=== PATIENT | female | born 1955 | race Caucasian/White ===

== ENCOUNTER 2017-04-07 13:48 | Inpatient (IN) | payer MEDICARE ==
[~2017-04-07] VITALS: Ht 147.3 cm; Wt 31.0 kg
[2017-04-07 15:56] LABS: BASOPHILS 0.6 % (0-2); HEMATOCRIT 36.3 % (36.0-48.0); HEMOGLOBIN 12.2 g/dL (12-16); IMMATURE GRANULOCYTES 0.4 % (0-5); MCH 33.9 pg (26.0-34.0); MCHC 33.6 g/dL (31.0-37.0); MCV 100.8 fL (80.0-100.0); MEAN PLATELET VOLUME 9.5 fL (7.4-10.4); PLATELET COUNT 444 10x3/uL (130-400); RDW 11.7 % (11.5-14.5); WBC 7.8 10x3/uL (4.8-10.8)
[2017-04-07 16:09] LABS: ALBUMIN 3.8 g/dL (3.4-5.0); ALKALINE PHOSPHATASE 54 U/L (46-116); ALT (SGPT) 18 U/L (10-68); BILIRUBIN - TOTAL 0.23 mg/dL (0.2-1.3); CALC OSMOLALITY 256 mosm/kg (275-300); CALCIUM 8.9 mg/dL (8.5-10.1); CARBON DIOXIDE 31.4 mmol/L (21.0-32.0); CHLORIDE - SERUM 91 mmol/L (98-107); CREATININE - SERUM 0.4 mg/dL (0.6-1.3); GLUCOSE 109 mg/dL (74-106); PROTEIN - SERUM 7.4 g/dL (6.4-8.2); SODIUM 128 mmol/L (136-145); UREA NITROGEN 9 mg/dL (7-18); eGFR NON AFRICAN AMERICAN > 90 mL/min (90-120)
[2017-04-07 16:17] LABS: PRO BNP 127 pg/mL (0-125)
[2017-04-07 16:21] LABS: TROPONIN-I < 0.017 ng/mL (0.000-0.060)
[2017-04-07 16:45] LABS: APPEARANCE CLEAR (CLEAR); BILIRUBIN NEGATIVE (NEGATIVE); COLOR YELLOW (YELLOW); GLUCOSE NEGATIVE (NEGATIVE); KETONE NEGATIVE (NEGATIVE); LEUKOCYTE ESTERASE TRACE (NEGATIVE); NITRITE NEGATIVE (NEGATIVE); PROTEIN NEGATIVE (NEGATIVE); UROBILINOGEN NORMAL (NORMAL)
[2017-04-07 16:46] LABS: BACTERIA FEW /hpf (NONE SEEN); EPITHELIAL CELLS 0-5 /hpf (0-5); RED CELLS - URINE OCC /hpf (0-5); WHITE CELLS - URINE 0-5 /hpf (0-5)
--- NOTE | 2017-04-07 19:45 | NUR ---
RECEIVED PT TO ROOM 2125 ALERT O X3. RT IN ROOM, BIPAP IN ROOM NOT IN USE AT THIS TIME. PT REQUESTED AND GIVEN SANDWICH TRAY AND DRINK. WILL MONITOR.
[2017-04-07] MEDS ORDERED: HYDROCODONE-APA1 TAB PO (20:24)
[2017-04-07] MEDS ORDERED: QVAR8.7 G1 INH (20:25)
[2017-04-07] MEDS ORDERED: VALIUM5 MG PO (20:25)
[2017-04-07] MEDS ORDERED: IPRAT-ALBUT 0.5-3 ML UPD (20:26)
[2017-04-07] MEDS ORDERED: VENTOLIN HFA18 GM INH (20:26)
[2017-04-07 20:27] VITALS: BMI 14.6
[2017-04-07 21:46] VITALS: BP 102/60; BP 144/83
[2017-04-08 01:37] VITALS: BP 123/66
[2017-04-08 05:32] VITALS: BP 102/63
--- NOTE | 2017-04-08 07:14 | NUR ---
PT SITTING UP IN BED WATCHING TV, DENIES NEEDS. RR EVEN AND UNLABORED WILL CONT TO MONITOR
[2017-04-08 08:15] VITALS: BP 98/59
--- NOTE | 2017-04-08 10:58 | NUR ---
PT SITTING U PIN BED DENIES NEEDS WILL CONT TO MONITOR
[2017-04-08 12:04] VITALS: BP 129/78
[2017-04-08 13:09] VITALS: Ht 147.3 cm; Wt 31.0 kg
--- NOTE | 2017-04-08 14:40 | NUR ---
Patient Name: MARIA EUGENIA JAMES Admission Status: ER Accout number: [id number] Admission Date: 04-07-2017 : 1955 Admission Diagnosis: Attending: SIDNEY Current LOS: 1 Anticipated DC Date: Planned Disposition: Home Primary Insurance: MEDICARE A & B Discharge Planning Comments: * Is the patient Alert and Oriented? Yes 0 * How many steps to enter\exit or inside your home? 1-2 0 * PCP DR. ROSENBERG 0 * Pharmacy [facility] [address] 0 * Preadmission Environment Home Alone 0 * ADLs Independent 0 * Equipment Nebulizer Oxygen 0 * Other Equipment HOME AND PORTABLE OXYGEN [facility] - MEDICAL EQUIPMENT PROVIDER PREFERENCE 0 * List name and contact numbers for known caregivers / representatives who currently or will assist patient after discharge: EZRA HOWARD, SISTER, 0 * Community resources currently utilized None 0 * Please name any agencies selected above. NONE 0 * Additional services required to return to the preadmission environment? No 0 * Can the patient safely return to the preadmission environment? Yes 0 * Has this patient been hospitalized within the prior 30 days at any hospital? Yes 0 CM MET WITH PT IN ROOM TO DISCUSS DISCHARGE PLANNING AND NEEDS. PT REPORTS LIVING AT HOME INDEPENDENTLY AND ALONE. PT REPORTS HER SISTER ASSISTS HER WITH TRANSPORTATION, HER BROTHER IN LAW COOKS FOR PT. PT HAS HOME AND PORTABLE OXYGEN AND NEBULIZER FROM [facility]. PT HAS NO OUTSIDE SERVICES ASSISTING IN THE HOME. CM DISCUSSED AVAILABILITY OF HOME HEALTH, REHAB SERVICES AND MEDICAL EQUIPMENT. PT DENIES HAVING ANY SKILLED NEEDS, ASKED ABOUT HAVING A NURSE TO HELP HER BATH AT HOME; CM EXPLAINED PERSONAL CARE AND THAT MEDICARE DID NOT COVER PERSONAL CARE AT HOME; CM ASKED ABOUT MEDICAID APPLICATION; PT REPORTS SHE DOES NOT QUALIFY FOR MEDICAID DUE TO OWNING PROPERTY BUT SHE IS THINKING OF MAKING ARRANGEMENTS TO DISPOSE OF PROPERTY IN ORDER TO POSSIBLY QUALIFY FOR MEDICAID IN THE FUTURE. PT REPORTS HER SISTER WILL PICK HER UP FOR DISCHARGE HOME. PT PLANS TO DISCHARGE HOME ALONE. PT DENIES ANY SKILLED NEEDS FOR HOME HEALTH AT THIS TIME; IF SKILLED NEED FOR HOME HEALTH SERVICE IS IDENTIFIED AND WITH PHYSICAN ORDERS, CM TO ARRANGE HOME HEALTH FOR PT'S DISCHARGE HOME. CM TO FOLLOW AND ASSIST IF NEEDED. Bottom Polisher: Zain Ricketts
[2017-04-08 16:12] VITALS: BP 121/74
--- NOTE | 2017-04-08 16:45 | NUR ---
PT C/O STOMACH PAIN. ASKED HER IF SHE NEEDED TO HAVE A BM. SHE SAID YES BUT IS UNABLE TO AND IS NOT PASSING GAS. LAST HAD A BM YESTERDAY. REQUESTING A LAXATIVE. DR GASTELUM HAS BEEN PAGED FOR ORDER.
--- NOTE | 2017-04-08 19:00 | NUR ---
INITIAL ROUNDS MADE. PT SITTING UP IN BED WATCHING TV. NO NEEDS OR C/O VOICED AT THIS TIME. CALL LIGHT IN REACH. WILL CONT TO MONITOR.
--- NOTE | 2017-04-08 21:00 | NUR ---
HS MEDS GIVEN WITHOUT DIFFICULTY. WILL CONT TO MONITOR.
[2017-04-08 22:09] VITALS: BP 125/85
--- NOTE | 2017-04-09 00:05 | NUR ---
CADD INSTRUCTOR AT BEDSIDE FOR VS. NEEDS ADDRESSED AT THIS TIME. CALL LIGHT IN REACH. WILL CONT TO MONITOR.
[2017-04-09 00:45] VITALS: BP 124/81
--- NOTE | 2017-04-09 02:51 | NUR ---
RESTING WELL WITH EYES CLOSED, CONT TO MONITOR.
[2017-04-09 05:13] VITALS: BP 147/80
[2017-04-09 06:03] LABS: BASOPHILS 0 % (0-2); EOSINOPHILS 0 % (0-7); HEMOGLOBIN 10.5 g/dL (12-16); IMMATURE GRANULOCYTES 0.3 % (0-5); LYMPHOCYTES 11.5 % (15-50); MCH 33.8 pg (26.0-34.0); MCHC 33.9 g/dL (31.0-37.0); MCV 99.7 fL (80.0-100.0); MEAN PLATELET VOLUME 9.1 fL (7.4-10.4); MONOCYTES 9.7 % (2-11); NEUTROPHILS 78.5 % (40-80); PLATELET COUNT 431 10x3/uL (130-400); RBC 3.11 10x6/uL (4.00-5.40); RDW 11.9 % (11.5-14.5); WBC 6.7 10x3/uL (4.8-10.8)
[2017-04-09 06:38] LABS: CALC OSMOLALITY 269 mosm/kg (275-300); CALCIUM 8.7 mg/dL (8.5-10.1); CARBON DIOXIDE 29.2 mmol/L (21.0-32.0); CHLORIDE - SERUM 97 mmol/L (98-107); CREATININE - SERUM 0.6 mg/dL (0.6-1.3); GLUCOSE 134 mg/dL (74-106); MAGNESIUM - SERUM 2.5 mg/dL (1.8-2.4); PHOSPHOROUS 3.2 mg/dL (2.5-4.9); POTASSIUM - SERUM 3.7 mmol/L (3.5-5.1); PRE-ALBUMIN 23.7 mg/dL (18.0-35.7); SODIUM 134 mmol/L (136-145); THYROID STIMULATING HORMONE 0.95 uIU/mL (0.36-3.74); UREA NITROGEN 13 mg/dL (7-18); eGFR NON AFRICAN AMERICAN > 90 mL/min (90-120)
--- NOTE | 2017-04-09 07:32 | NUR ---
PT IS SITTING UP IN BED TALKING ON THE PHONE, GIVEN PT INSTRUCTIONS ON HOW TO OBTAIN CLEAN CATCH URINE. PT RR EVEN AND UNLABORED. NO S/S DISTRESS NOTED. WILL CONT TO MONITOR.
[2017-04-09 08:41] VITALS: BP 148/77
--- NOTE | 2017-04-09 09:35 | NUR ---
PT IN LEFT LATERAL POSITION. DIET TRAY ORDERED POST CT. CLEAN CATCH URINE SPECIMEN OBTAINED. PT DENIES FURTHER NEEDS AT THIS TIME.
[2017-04-09 12:46] VITALS: BP 163/77
[2017-04-09 16:53] VITALS: BP 118/60
--- NOTE | 2017-04-09 18:33 | NUR ---
PT LAYING TO LEFT SIDE RESTING NO S/S DISTRESS NOTED RR EVEN AND UNLABORED.
--- NOTE | 2017-04-09 20:00 | NUR ---
PT RESTING INBED. ALERT/ORIENTED. ST PER TELEMETRY. O2 @ 2L/NC, BIPAP AVAILABLE AT NIGHT, BUT PT CHOOSES TO NOT WEAR IT. TOOK MOM EARLIER TODAY AND STILL HAS NOT HAD A "GOOD" BM. STATES SHE DID A "SMALL THING". CPOC.
--- NOTE | 2017-04-09 20:50 | NUR ---
PT ALERT/ORIENTED AND RESTING IN BED. PT C/O NAUSEA, MEDICATED WITH ZOFRAN 4MG SIVP AND ALSO PT REQUESTED AND RECEIVED VALIUM BY MOUTH. O2 @ 2L/NC WITH SHALLOW/SLIGHTLY LABORED RESPIRATIONS. JUST COMPLETED HER BREATHING TREATMENT. SEE SHIFT ASSESSMENT. CALL LIGHT IN REACH. SALINE LOCKED IV TO RFA.
[2017-04-09 22:32] VITALS: BP 160/81
--- NOTE | 2017-04-09 23:00 | NUR ---
HS MEDS GIVEN. PT RESTING WITH NO OTHER NEEDS. CPOC.
[2017-04-10 00:42] VITALS: BP 131/60
[2017-04-10 06:10] VITALS: BP 162/90
--- NOTE | 2017-04-10 07:00 | NUR ---
PT WAS RECEIVED AWAKE AND ORIENTED X 4 AT THE BEGINNING OF THIS SHIFT. NO COMPLAINTS OR CONCERNS VOICED TO STAFF. VITAL SIGNS WNL. RT. FOREARM SALINE LOCKED. TELEMETRY ON. 02 PER NC GOING AT 2L/MIN. WILL BE MONITORING HER THROUGHOUT THIS SHIFT AND ASSISTING PRN NEEDED. STABLE CONDITION OBSERVED.
[2017-04-10 07:55] VITALS: BP 160/86
[2017-04-10 11:35] VITALS: BP 134/73
--- NOTE | 2017-04-10 13:11 | NUR ---
Nutrition follow-up: Diet: Low sodium PO intake has been ~80% average of lst 6 meals Pt ordering Ensure PRN +BM, small Wt: 69# RDN following.
--- NOTE | 2017-04-10 14:45 | NUR ---
PT ASKED FOR VALIUM AT 0839 AND MOM AND A PAIN PILL AT 11:40AM. SHE RECEIVED HER NORCO 10MG AT THAT TIME. SHE IS FOCUSED ON HAVING A BOWEL MOVEMENT. SHE IS UP AD JOSHUA TO THE BATHROOM. SHE STATED SHE HAD A BOWEL MOVEMENT YESTERDAY.
[2017-04-10 15:22] VITALS: BP 141/77
--- NOTE | 2017-04-10 18:38 | NUR ---
PT REQUESTED PAIN MEDICATION AROUND 6:05PM AND RECEIVED A NORCO 10MG AT THAT TIME. PT HAS BEEN CALM THIS AFTERNOON, WATCHING TV.
[2017-04-10 19:00] VITALS: BP 148/79
--- NOTE | 2017-04-10 19:00 | NUR ---
RECEIVED REPORT AND ASSUMED PT CARE FROM DAY SHIFT NURSE @ THIS TIME.
[2017-04-11 04:00] VITALS: BP 146/74
--- NOTE | 2017-04-11 07:27 | NUR ---
PATIENT ALERT/ORIENT X4. TELEMTRY ON. OXYGEN ON AT 2L PER N/C. RIGHT FOREARM SALINE LOCKED. PATIENT HAS CALL LIGHT WITHIN REACH. VOICES NO NEEDS AT THIS TIME
[2017-04-11 07:48] VITALS: BP 152/76
--- NOTE | 2017-04-11 08:20 | NUR ---
PRN VALIUM GIVEN FOR ANXIEITY
--- NOTE | 2017-04-11 11:15 | NUR ---
PRN NORCO GIVEN FOR BACK PAIN PER PATIENT REQUEST
[2017-04-11 11:48] VITALS: BP 150/88
[2017-04-11] MEDS ORDERED: SINGULAIR10 MG PO (14:45)
[2017-04-11] MEDS ORDERED: DALIRESP500 MCG PO (14:45)
[2017-04-11] MEDS ORDERED: MUCINEX DM ER1 EAC1 PO (14:45)
[2017-04-11] MEDS ORDERED: TESSALON PERLE100 MG PO (14:46)
[2017-04-11] MEDS ORDERED: PREDNISONE10 MG PO (14:47)
[2017-04-11] MEDS ORDERED: HYDROCODONE-APA1 TAB PO ×2 (15:16→15:19)
--- NOTE | 2017-04-11 15:22 | NUR ---
Patient Name: MARIA EUGENIA JAMES Encounter No: [id number] : 1955 Primary Insurance: MEDICARE A & B Anticipated DC Date: Planned Disposition: Home DCP follow-up note: CM MET WITH PT IN ROOM TO DISCUSS DISCHARGE NEEDS AND PLANNING. CM DISCUSSED AVAILABILITY OF HOME HEALTH, REHAB SERVICES AND MEDICAL EQUIPMENT. PT DENIES DISCHARGE NEEDS. PT TO CALL FAMILY TO PICK HER UP TODAY TO TRANSPORT HOME AT DISCHARGE. IMPORTANT MESSAGE FROM MEDICARE PROVIDED AND EXPLAINED. CHERISE WAGNER, CASE MANAGEMENT
--- NOTE | 2017-04-11 15:35 | NUR ---
DISCHARGE ORDERS RECEIVED.
[2017-04-11 15:51] VITALS: BP 136/82
--- NOTE | 2017-04-11 16:53 | NUR ---
RIGHT FOREARM SALINE LOCK REMOVED. TELEMETRY TAKEN OFF BEFORE PATIENT GOES HOME. DISCHARGE INSTRUCTIONS GONE OVER WITH PATIENT.
--- NOTE | 2017-04-11 18:08 | NUR ---
FRIEND OF PATIENTS HERE TO TAKE PATIENT HOME. PORTABLE OXGEN TANK BROUGHT WITH FRIEND. PATIENT HELPED OUT TO CAR BY STAFF.
== END 2017-04-11 18:09 | disposition home or self-care (01) | DRG 189 ==
LOC: D.ER 13:48 → D.M2 17:43
PROVIDERS: Emergency Medicine; Physician Assistant; ADMIT Family Medicine
DX: J96.22 Acute and chronic respiratory failure with hypercapnia (principal); J44.1 Chronic obstructive pulmonary disease with (acute) exacerbation; E87.1 Hypo-osmolality and hyponatremia; F17.203 Nicotine dependence unspecified, with withdrawal; J96.21 Acute and chronic respiratory failure with hypoxia; Z99.81 Dependence on supplemental oxygen; D64.9 Anemia, unspecified; J30.9 Allergic rhinitis, unspecified; Z66 Do not resuscitate; F41.9 Anxiety disorder, unspecified; I10 Essential (primary) hypertension; R00.0 Tachycardia, unspecified